=== PATIENT | male | born 2000 | race Two or more races ===

== ENCOUNTER 2024-12-21 14:46 | Emergency (ER) | payer OTHER ==
[~2024-12-21] VITALS: Ht 167.6 cm; Wt 112.6 kg
[2024-12-21 15:05] VITALS: BP 119/60; TEMP 97.8
[2024-12-21] MEDS ORDERED: LIDOCAINE 2% 20 ML MDV ONE (16:06)
[2024-12-21] MEDS ORDERED: CLIN300C12 PO (16:15)
[2024-12-21] MEDS: LIDOCAINE HCL/PF 1% 30 ML VIAL TP ONE (16:19)
[2024-12-21 16:55] VITALS: O2SAT 98
== END 2024-12-21 16:53 | disposition home or self-care (01) ==
LOC: ER 14:50
DX: S61.213A Laceration without foreign body of left middle finger without damage to nail, initial encounter (principal); W20.8XXA Other cause of strike by thrown, projected or falling object, initial encounter; Y93.89 Activity, other specified; Y92.69 Other specified industrial and construction area as the place of occurrence of the external cause; Y99.0 Civilian activity done for income or pay
CPT/HCPCS: 12001; 73130; 99283; J3490